=== PATIENT | male | born 1990 | race Caucasian/White ===

== ENCOUNTER 2022-07-21 16:36 | Inpatient (IN) | payer MEDICAID, SELFPAY ==
[2022-07-21 17:13] VITALS: BP 130/70; PULSE 92; RESP 12; TEMP 36.8; O2SAT 97
--- NOTE | 2022-07-21 17:36 | ED_ITS ---
HPI - General Adult General: Chief complaint: Psychiatric Symptoms Stated complaint: MHE Time Seen by Provider: 07/21/22 17:27 History of Present Illness: HPI: [32]yo patient w/ hx of depression BIBA for depression with suicidal ideation. On arrival, the patient is AAOx3 and cooperative with my evaluation. No focal complaints of chest pain, shortness of breath, palpitations, N/V, focal GI/ complaints. Currently denies HI. No complaints of hallucinations. Onset: chronic Duration: ongoing Location: home Severity: severe Associated symptoms: Deny chest pain, dyspnea, nausea, palpitations or vomiting Review of Systems Const: Denies: fever(s) or chills Eyes: Denies: change in vision ENMT: Denies: mouth pain Card: Denies: chest pain or palpitations Resp: Denies: dyspnea or non-productive cough GI: Denies: abdominal pain, nausea, vomiting or diarrhea : Denies: dysuria Musc: Denies: extremity pain Skin/Breast: Reports: new lesions (+L arm laceration) Neuro: Denies: weakness in extremities Psych: Reports: depression and suicidal ideation Matthew/Lymph: Denies: easy bruising PFSH ED PFSH: Medical History Depression Social History Smoking and tobacco status: former smoker Alcohol intake: former Substance/Drug Use: former Physical Exam Const: COMMON NORMALS: alert HENMT: COMMON NORMALS: atraumatic HEAD & SCALP: atraumatic MOUTH: moist mucous membranes not abnormal Eye: COMMON NORMALS: EOMs intact bilaterally and conjunctivae normal CONJUNCTIVA: Yes conjunctivae normal Neck/C-Spine: COMMON NORMALS: full ROM and supple Resp: COMMON NORMALS: normal respiratory effort and clear to auscultation bilaterally AUSCULTATION: clear to auscultation bilaterally Cardio: COMMON NORMALS: regular rate RATE: regular rate GI: COMMON NORMALS: Soft to palpation and non-tender PALPATION: Yes Soft to palpation Extremity: COMMON NORMALS: full ROM Neuro: SENSORIUM/ORIENTATION: Yes alert MOTOR EXAM: No Abnormal motor strength present and Other motor observations present (no focal motor deficits) Psych: COMMON NORMALS: speech normal SPEECH: Yes normal speech MOOD & AFFECT: Yes euthymic mood Skin: NARRATIVE SKIN EXAM: +multiple healing superficial lacerations over the L volar forearm Course Vital Signs: Vital signs: Vital Signs Temperature 98.3 F 07/21/22 17:13 Pulse Rate 92 07/21/22 17:13 Respiratory Rate 12 07/21/22 17:13 Blood Pressure 130/70 07/21/22 17:13 Pulse Oximetry 97 07/21/22 17:13 Oxygen Delivery Me thod 07/21/22 17:13 MDM - General Adult Medical Decision Making [32]yo patient w/ hx of depression presenting for SI with plan. HDS, exam within normal limit Thoughts are linear and organized, and the patient has no AH/VH, or HI. Clinically the patient displays no overt toxidrome; they are well appearing, with low suspicion for toxic ingestion given history and exam. Symptoms unlikely 2/2 anemia, hypothyroidism, infection, or ICH. Workup: CBC, CMP, Lipase, salicylate/tylenol, UDS Lab findings: wnl [6:00pm] On reassessment, labs and workup wnl. Patient is hemodynamically stable with no acute medical complaints. Case discussed with psychiatric provider Dr. Pinto at [facility] psych inpatient with recommendation for admission Disposition: Psych Lab Data : 07/21/22 18:09 07/21/22 18:09 Laboratory Results WBC 5.6 10^3/uL (4.0-10.0) 07/21/22 18:09 RBC 5.33 10^6/uL (4.1-5.3) H 07/21/22 18:09 Hgb 16.1 g/dL (11.7-16.6) 07/21/22 18:09 Hct 46.6 % (42.0-52.0) 07/21/22 18:09 MCV 87.4 fl (80-94) 07/21/22 18:09 MCH 30.2 pg (28.0-34.0) 07/21/22 18:09 MCHC 34.5 g/dL (30.0-36.0) 07/21/22 18:09 RDW 12.3 % (12.1-15.1) 07/21/22 18:09 Plt Count 163 10^3/cmm (130-400) 07/21/22 18:09 MPV 8.8 fL (7.4-10.4) 07/21/22 18:09 Neut % (Auto) 47.0 % 07/21/22 18:09 Lymph % (Auto) 39.4 % 07/21/22 18:09 [place] % (Auto) 10.4 % 07/21/22 18:09 Eos % (Auto) 2.3 % 07/21/22 18:09 Baso % (Auto) 0.5 % 07/21/22 18:09 Neut # (Auto) 2.63 10^3/uL (1.8-7.7) 07/21/22 18:09 Lymph # (Auto) 2.2 10^3/uL (0.8-4.8) 07/21/22 18:09 [place] # (Auto) 0.6 10^3/uL (0.2-0.9) 07/21/22 18:09 Eos # (Auto) 0.1 10^3/uL (0.0-0.8) 07/21/22 18:09 Baso # (Auto) 0.0 10^3/uL (0.0-0.1) 07/21/22 18:09 Nucleated RBC % (auto) 0 % 07/21/22 18:09 Nucleated RBCs # 0.0 /100WBC 07/21/22 18:09 Sodium 138 mmol/L (136-145) 07/21/22 18:09 Potassium 4.5 mmol/L (3.5-5.1) 07/21/22 18:09 Chloride 98 mmol/L (98-107) 07/21/22 18:09 Carbon Dioxide 32 mmol/L (22-29) H 07/21/22 18:09 Anion Gap 12.5 (5-19) 07/21/22 18:09 BUN 15 mg/dL (6-20) 07/21/22 18:09 Creatinine 1.1 mg/dL (0.7-1.2) 07/21/22 18:09 GFR Calculation 78.1 mL/min (90-130) L 07/21/22 18:09 Glucose 84 mg/dL (65-115) 07/21/22 18:09 Calculated Osmolality 286 mOsm/kg (285-295) 07/21/22 18:09 Calcium 9.3 mg/dL (8.5-10.5) 07/21/22 18:09 Total Bilirubin 0.2 mg/dL (0.15-1.2) 07/21/22 18:09 AST 25 U/L (0-40) 07/21/22 18:09 ALT 39 U/L (0-41) 07/21/22 18:09 Alkaline Phosphatase 94 U/L (40-130) 07/21/22 18:09 Total Protein 6.8 g/dL (6.6-8.7) 07/21/22 18:09 Albumin 4.8 g/dL (3.5-5.2) 07/21/22 18:09 Globulin 2.0 g/dL (1.3-4.6) 07/21/22 18:09 TSH 0.90 uIU/mL (0.27-4.20) 07/21/22 18:09 Salicylates < 0.3 mg/dL (3-10) L 07/21/22 18:09 Urine Opiates Screen Negative ng/mL (Negative) 07/21/22 18:20 Acetaminophen < 5.0 ug/mL (10-30) L 07/21/22 18:09 Ur Barbiturates Screen Negative ng/mL (Negative) 07/21/22 18:20 Ur Phencyclidine Scrn Negative ng/mL (Negative) 07/21/22 18:20 Ur Amphetamines Screen Negative ng/mL (Negative) 07/21/22 18:20 U Benzodiazepines Scrn Positive ng/mL (Negative) H 07/21/22 18:20 Urine Cocaine Screen Negative ng/mL (Negative) 07/21/22 18:20 U Marijuana (THC) Screen Negative ng/mL (Negative) 07/21/22 18:20 Ethyl Alcohol < 10 mg/dL (0-10) 07/21/22 18:09 Discharge Plan Discharge Patient Disposition: Admitted As Inpatient Clinical Impression: Depression with suicidal ideation, Auditory hallucination Condition: Stable Coding Level of Care Code 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
[2022-07-21 18:20] LABS: Basophils % 0.5 %; Eosinophils # 0.1 10^3/uL (0.0-0.8); Eosinophils % 2.3 %; Hematocrit 46.6 % (42.0-52.0); Hemoglobin 16.1 g/dL (11.7-16.6); Lymphocytes # 2.2 10^3/uL (0.8-4.8); Lymphocytes % 39.4 %; Mean Corpuscular HGB Conc 34.5 g/dL (30.0-36.0); Mean Corpuscular Hemoglobin 30.2 pg (28.0-34.0); Mean Corpuscular Volume 87.4 fl (80-94); Mean Platelet Volume 8.8 fL (7.4-10.4); Monocytes # 0.6 10^3/uL (0.2-0.9); Monocytes % 10.4 %; Neutrophils # 2.63 10^3/uL (1.8-7.7); Nucleated Red Blood Cells % 0 %; Platelet Count 163 10^3/cmm (130-400); Red Blood Count 5.33 10^6/uL (4.1-5.3); Red Cell Distribution Width 12.3 % (12.1-15.1); White Blood Count 5.6 10^3/uL (4.0-10.0)
[2022-07-21 18:56] LABS: Amphetamines Screen Urine Negative (Negative); Barbiturates Screen Urine Negative (Negative); Benzodiazepines Screen Urine Positive (Negative); Cocaine Screen Urine Negative (Negative); Opiate Screen Urine Negative (Negative); PCP Screen Urine Negative (Negative); THC Screen Urine Negative (Negative)
[2022-07-21 18:56] LABS: Alanine Aminotransferase 39 U/L (0-41); Albumin Level 4.8 g/dL (3.5-5.2); Alkaline Phosphatase 94 U/L (40-130); Anion Gap 12.5 (5-19); Aspartate Amino Transferase 25 U/L (0-40); Blood Urea Nitrogen 15 mg/dL (6-20); Calcium 9.3 mg/dL (8.5-10.5); Carbon Dioxide 32 mmol/L (22-29); Chloride 98 mmol/L (98-107); Glomerular Filtration Rate 78.1 mL/min (90-130); Glucose 84 mg/dL (65-115); Osmolality Calculated 286 mOsm/kg (285-295); Potassium 4.5 mmol/L (3.5-5.1); Sodium 138 mmol/L (136-145); Total Bilirubin 0.2 mg/dL (0.15-1.2); Total Protein 6.8 g/dL (6.6-8.7)
[2022-07-21 18:57] LABS: Acetaminophen < 5.0 ug/mL (10-30); Alcohol Level < 10 mg/dL (0-10); Salicylate < 0.3 mg/dL (3-10)
[2022-07-21] MEDS: LORazepam 2 mg Tablet PO (19:23)
[2022-07-21 19:28] LABS: Add Urine Microscopic? YES; Bilirubin Urine Neg (Negative); Blood Urine Neg (Negative); Glucose Urine UA Norm (Normal); Ketones Urine Negative (Negative); Leukocyte Esterase Urine Trace (Negative); Nitrate Urine Negative (Negative); Protein Urine Neg (Negative); Urine Appearance Clear (CLEAR); Urine Color Yellow (Yellow); Urobilinogen Urine Norm (Negative); pH Urine 7 (5-7)
[2022-07-21 19:29] LABS: Add Urine Culture? No; RBC Urine 0-4 /hpf (0-2); Squamous Epithelial Cell Urine 0-4 /hpf (0-5); WBC Urine 0-4 /hpf (0-5)
[2022-07-21] MEDS: gabapentin 300 mg Capsule PO (22:28)
[2022-07-21 22:29] VITALS: BP 148/88
[2022-07-21] MEDS: fluoxetine 20 mg Capsule 10 MG PO (22:29)
[2022-07-21] MEDS: cloNIDine 0.1 mg Tablet PO (22:29)
[2022-07-21] MEDS: OXcarbazepine 300 mg Tablet 600 MG PO (22:29)
--- NOTE | 2022-07-21 23:17 | PC.NURSE ---
Took over care of pt. Pt requesting anxiety meds at this time. NAD. Cooperative. Pt moved to room 8.
[2022-07-22 00:44] VITALS: BP 129/84; PULSE 86; RESP 18; TEMP 36.8; O2SAT 97
[2022-07-22] MEDS: trazodone 50 mg Tablet PO ×3 (01:08→22:18)
--- NOTE | 2022-07-22 01:47 | PC.ADMIT ---
117 [facility] Admission Note: The patient,Darin Han,32 y/o, was given written information regarding hospital policies, unit procedures and contact persons. Patient's smoking status: former smoker. Vital Signs - 8 hr 07/21/22 22:29 07/22/22 00:39 Blood Pressure 148/88 Oxygen Delivery Method Room Air PT PRESENTS ANXIOUS BUT COOPERATIVE. HYPERVERBAL. POOR CONCENTRATION. REPORTS I HAVE BEEN AT [facility] TRYING TO KICK THE BENZOS. I QUIT ALL OTHER DRUGS 28 MONTHS AGO AND ONLY HAVE THE BENZOS AND ADDERALL NOW. SINCE STOPPING, I ALWAYS FEEL LIKE SOMEONE IS RIGHT BEHIND ME AND HAVE BECOME MORE DEPRESSED AND HOPELES AND FEEL LIKE I JUST WANT IT TO BE DONE DENIES A PLAN. REPORTS HX OF SEIZURES WHEN ATTEMPTING TO WITHDRAW FROM BENZOS ON OWN PREVIOUSLY. PT REPORTS A LOT OF TRAUMA IN HX WITH THE WORST TRAUMAS BEING SEEING TOO MANY PEOPLE IN PERSON. AGE 14 HE HELD GRANDPAS HAND WHILE HE , MULTIPLE FRIENDS OD'D AND SUICIDE AND WITNESSED BEST FRIEND IN 2018 FROM CYSTIC FIBROSIS AND THAT WAS THE WORST ONE. HX OF SUICIDE ATTEMPT IN 2019. 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 GOOD SUPPORT SYSTEM. PT IS CLEAN AND WELL KEMPT. EASILY DISTRACTED.
[2022-07-22 06:00] VITALS: BP 127/75; PULSE 63; RESP 15; TEMP 37; O2SAT 95
[2022-07-22] MEDS: OXcarbazepine 300 mg Tablet 600 MG PO ×2 (10:09→18:32)
[2022-07-22] MEDS: chlordiazePOXIDE 25 mg Capsule PO (10:09)
[2022-07-22] MEDS: lisinopril 20 mg Tablet PO (10:09)
[2022-07-22] MEDS: fluoxetine 20 mg Capsule 40 MG PO (10:10)
[2022-07-22] MEDS: gabapentin 300 mg Capsule PO ×3 (10:10→21:22)
[2022-07-22] MEDS: OLANZapine 5 mg ODT PO (12:18)
[2022-07-22 14:00] VITALS: BP 128/69; PULSE 80; RESP 15; TEMP 36.6; O2SAT 95
[2022-07-22] MEDS: CLONazepam 1 mg Tablet PO ×2 (16:40→21:22)
--- NOTE | 2022-07-22 17:45 | P.NPUHP_ITS ---
Providers/Chief Complaint Admitting Physician: Philipp Pinto MD Chief Complaint: depressed mood and suicidal ideation HPI NPU History of Present Illness Darin Han is a 32 year old male admitted to [facility] inpatient rehabilitation center for the past 8 days. He had reported with suicidal alcon ation over the past few days and states that he had been informed to come to the emergency room for further clearance prior to reentering into the [facility] inpatient program. He states that he has been feeling increasingly anxious and agitated with the reduction in his benzodiazepines from 4 mg a day of Klonopin down to approximately 40 mg a day of Librium. He states that the doctor had abruptly discontinued this medication and states that he has been worried about having a seizure. He endorses a past history of panic attacks along with generalized anxiety disorder and states that his chronic worry and panic attacks have been much worse. He endorses having depressed mood for the past several days and states that he has had difficulties with concentration. He has reported at times having had benzodiazepine withdrawal seizures and states that he has been feeling much worse. He endorses a past history of ADHD and states that he had his Adderall discontinued as well. He also endorses a past history of manic symptoms including irritable mood decreased need for sleep racing thou ghts periods of excessive spending with mixed mood symptoms including depressed mood as well. He reports a past history of methamphetamine use but states that he has been clean off his off of any stimulant abuse for a few years. He had also reported sobriety with opiates despite an extended history of opiate abuse reported. He reports that he has been using Suboxone 8 mg a day in the past but had that reduced approximately 2 months ago with some change reported in his mood and energy. The patient had reported that he had desired to get off of his benzodiazepines but reports that the accelerated efforts at [facility] had led him to feel significantly dyspneic dysphoric. Past Psychiatric History: Patient has reported 4 previous hospitalizations. He reports history of inpatient rehabilitation at the age of 19. Would also reported history of a suicide attempt leading to his first psychiatric hospitalization as a teenager. He had reported previous diagnosis of panic disorder generalized anxiety disorder and bipolar depression. He reported having outpatient treatment currently under Dorothy Humphries through his outpatient primary clinic. He had reported previously seeing a psychiatrist at [facility] and stated that it had been helpful. 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 He reports having no no use of methamphetamines for several years. He had reported past history of excessive use of benzodiazepines orally for treating anxiety. He denies any current alcohol use. Social History: He was born in [place] and raised by his biological parents until they at 14. After this time, he lived with his mother. He reported having been diagnosed with oppositional defiant disorder and ADHD as a child. He reports having significant problems with juvenile Justice for fighting and stealing during his childhood. He reports dropping out of school in the 10th grade and earned his GED with no significant legal problems afterwards. 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 He reports that he had attended a college for [employer] in [place]. He reports that he has never been and has no he had reported having significant mood swings as a child. Meds NPU Home Medications Medication Instructions Recorded Confirmed Last Taken Type buprenorphine HCl 2 mg sublingual 2 mg sublingual DAILY 07/22/22 07/22/22 07/21/22 06:21 History tablet chlordiazepoxide 25 mg tablet 25 mg PO TID 07/22/22 07/22/22 07/21/22 11:54 History clonidine HCl 0.1 mg tablet 0.1 mg PO TID PRN BLOOD 07/22/22 07/22/22 07/21/22 11:55 History PRESSURE/ANXIETY fluoxetine 10 mg capsule 10 mg PO BEDTIME 07/22/22 07/22/22 07/20/22 19:22 History fluoxetine 40 mg capsule 40 mg PO DAILY 07/22/22 07/22/22 07/21/22 06:22 History gabapentin 300 mg tablet 300 mg PO TID WITHDRAWAL/SEIZURE 07/22/22 07/22/22 07/21/22 11:54 History hydroxyzine pamoate 50 mg capsule 50 mg PO TID PRN ALLERGIES/ANXIETY 07/22/22 07/22/22 07/21/22 11:55 History lisinopril 20 mg tablet 20 mg PO DAILY 07/22/22 07/22/22 07/21/22 06:23 History oxcarbazepine 300 mg tablet 600 mg PO BID 07/22/22 07/22/22 07/21/22 06:25 History (Trileptal) Allergies Allergy/AdvReac Type Severity Reaction Status Date / Time fluconazole [From Diflucan] Allergy ALGY-Rash Verified 07/21/22 17:13 oxybutynin Allergy ALGY-Hives Verified 07/21/22 17:13 Penicillins Allergy ALGY-Hives Verified 07/21/22 17:13 PFSH NPU PFSH: Medical History Depression Social History Smoking and tobacco status: former smoker Alcohol intake: former Substance/Drug Use: former Mental Status Exam MSE Comments: Is a pleasant cooperative young male who appeared very anxious on interview and fidgety. There was no evidence of any tics or clear tremors appreciated. His mood was described as depressed. His affect was restricted in range. There was no clear evidence of delusional thinking. He not appear to be responding internal stimuli. His attention appeared variable his concentration appeared poor. He endorses some passive suicidal thoughts with no active plan at this time. There is no homicidal ideation endorsed. His insight appeared fair his judgment appeared poor his impulse control appeared guarded at this time. Vitals/I&O/Wt Last Vital Signs Temp 98 F 07/22/22 14:00 Pulse 80 07/22/22 14:00 Resp 15 07/22/22 14:00 BP 128/69 07/22/22 14:00 Pulse Ox 95 07/22/22 14:00 O2 Del Method 07/22/22 06:00 Weight last 48 hrs Weight 115.666 kg Data NPU : 07/21/22 18:09 07/21/22 18:09 A&P Assessment and plan (1) Depression with suicidal ideation: Status: Acute (2) Polysubstance abuse: Status: Acute (3) Generalized anxiety disorder: Status: Acute (4) ADHD: Status: Acute (5) Bipolar disorder, unspecified: Status: Acute Plan This is a 32-year-old white male with a history of polysubstance abuse admitted to the [facility] currently endorsing increased mood symptoms with depressed mood and suicidally ideation that appears to have been triggered by rapid decrease in benzodiazepines in an attempt to remove patient from Klonopin. 1. Engage patient in individual milieu and group therapy #2. Therapeutic observation 15-minute checks. #3 Restart Prozac, lisinopril and trileptal as prescribed #4 Restart suboxone at 8mg/day #5 Restart Klonopin at 1mg tid, discontinued Librium, given the extensive duration of use of klonopin, it may be better to reduce this slowly by .5mg every 2 weeks on outpatient basis. #6 recommend restart of adhd medication, adderall if possible. Involuntary Hold Information 96 Hour Hold: 96 Hour Involuntary Admission: No Attestations NPU Medical Necessity Statement*: Inpatient hospitalization is medically necessary and the clinically appropriate intervention at this time. We will monitor medications and make changes as indicated. Patient will be in the hospital for over two midnights. Likely length of stay is three to five days. ? 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
[2022-07-22] MEDS: buprenorphine-naloxone 4-1 mg Film 1 EACH SUBLINGUAL (18:32)
[2022-07-22 19:58] VITALS: BP 109/67; PULSE 66; RESP 18; O2SAT 94
[2022-07-23] MEDS: ibuprofen 600 mg Tablet PO (04:17)
[2022-07-23 06:00] VITALS: BP 111/67; PULSE 87; RESP 16; TEMP 36.4; O2SAT 95
[2022-07-23] MEDS: OXcarbazepine 300 mg Tablet 600 MG PO ×2 (09:23→17:48)
[2022-07-23] MEDS: fluoxetine 10 mg Capsule PO (09:23)
[2022-07-23] MEDS: fluoxetine 20 mg Capsule 40 MG PO (09:23)
[2022-07-23] MEDS: buprenorphine-naloxone 4-1 mg Film 1 EACH SUBLINGUAL ×2 (09:23→17:48)
[2022-07-23] MEDS: lisinopril 20 mg Tablet PO (09:24)
[2022-07-23] MEDS: CLONazepam 1 mg Tablet PO ×3 (09:24→21:26)
[2022-07-23] MEDS: gabapentin 300 mg Capsule PO ×3 (09:24→21:26)
[2022-07-23] MEDS: hyDROXYzine 25 mg Capsule 50 MG PO ×2 (11:16→21:45)
[2022-07-23] MEDS: OLANZapine 5 mg ODT PO ×2 (11:17→18:43)
[2022-07-23] MEDS: nicotine 21 mg Patch 1 PATCH TRANSDERMA (11:18)
--- NOTE | 2022-07-23 11:26 | P.NPUPN_ITS ---
Subjective NPU Subjective: Patient presents today reporting that he is doing better since the Klonopin was restarted. We spoke however about the unlikelihood that [facility] would want to go back to this higher dose based on their intervention. He had his desire to return to [facility] we will need to collaborate with him about what would be seen as a reasonable pattern for the Klonopin discontinuation. We discussed dropping the dose to 2.5 mg a day instead of 3 and then having a biweekly 0.5 mg drop, but that would mean a discontinuation in 2 months. This may be too slow for their tastes. We agreed we would make a decision after we hear back from them. Mental Status Exam MSE Comments: This is an overweight white male in day [facility] scrubs with adequate grooming and eye contact. No abnormal movements except mild psychomotor retardation. Cooperative with exam in mild distress. Speech was slightly decreased rate normal volume. Mood described as anxious, affect appropriate thought process organized. Thought content: Patient denied suicidal or homicidal ideation, there were no delusions reported or noted, he denied any auditory hallucination. Attention concentration were intact and memory appeared done formally tested. He was alert oriented x3. Insight was improving, judgment limited, impulse control limited. Vitals/I&O/Wt Last Vital Signs Temp 97.5 F L 07/23/22 06:00 Pulse 87 07/23/22 06:00 Resp 16 07/23/22 06:00 BP 111/67 07/23/22 06:00 Pulse Ox 95 07/23/22 06:00 O2 Del Method 07/22/22 06:00 Weight last 48 hrs Weight 115.666 kg Data NPU : 07/21/22 18:09 07/21/22 18:09 A&P Assessment and plan (1) Depression with suicidal ideation: Status: Acute (2) Polysubstance abuse: Status: Acute (3) Generalized anxiety disorder: Status: Acute (4) ADHD: Status: Acute (5) Bipolar disorder, unspecified: Status: Acute Plan This is a 32-year-old white male with a history of polysubstance abuse admitted to the [facility] inpatient rehabilitation center currently endorsing increased mood symptoms with depressed mood and suicidally ideation that appears to have been triggered by rapid decrease in benzodiazepines in an attempt to remove patient from Klonopin. 1. Engage patient in individual milieu and group therapy #2. Therapeutic observation 15-minute checks. #3 Restart Prozac, lisinopril and trileptal as prescribed #4 Restart suboxone at 8mg/day #5 Restarted Klonopin at 1mg tid, discontinued Librium, given the extensive duration of use of klonopin, it may be better to reduce this slowly by .5mg every 2 weeks on outpatient basis. #6 We will decrease Klonopin to 2.5 mg daily and work with [facility] to determine a taper they would be okay with. Involuntary Hold Information 96 Hour Hold: 96 Hour Involuntary Admission: No Attestations NPU Medical Necessity Statement*: Inpatient hospitalization is medically necessary and the clinically appropriate intervention at this time. We will monitor medications and make changes as indicated. Likely length of stay is 2-4 days. ? 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
--- NOTE | 2022-07-23 11:39 | PC.NURSE ---
NEW ORDERS/AM ASSESSMENT PT WAS VERY ANXIOUS ON AM ASSESSMENT, SCORING 8/10 FOR ANXIETY. PT WAS GIVEN PRN ZYDIS AND VISTARIL ORDERED. MAR WAS REVIEWED AND KLONOPIN WAS RESTARTED 3 TIMES A DAY. PT WAS EDUCATED ON HIS PLAN OF CARE AND VERBALIZED UNDERSTANDING. ALL QUESTIONS ANSWERED AND SUPPORT WAS VOICED.
[2022-07-23 14:00] VITALS: BP 135/72; PULSE 79; RESP 15; TEMP 36.7; O2SAT 95
[2022-07-23] MEDS: trazodone 50 mg Tablet PO (21:26)
[2022-07-23] MEDS: cloNIDine 0.1 mg Tablet PO (21:26)
[2022-07-23 21:44] VITALS: BP 153/74; PULSE 108; RESP 18; TEMP 36.9; O2SAT 97
[2022-07-24 06:00] VITALS: BP 110/69; PULSE 72; RESP 17; TEMP 36.7; O2SAT 94
[2022-07-24] MEDS: hyDROXYzine 25 mg Capsule 50 MG PO ×3 (06:37→21:58)
[2022-07-24] MEDS: OLANZapine 5 mg ODT PO (06:38)
[2022-07-24] MEDS: buprenorphine-naloxone 4-1 mg Film 1 EACH SUBLINGUAL ×2 (08:26→18:17)
[2022-07-24] MEDS: OXcarbazepine 300 mg Tablet 600 MG PO ×2 (08:26→18:17)
[2022-07-24] MEDS: fluoxetine 20 mg Capsule 40 MG PO (08:26)
[2022-07-24] MEDS: gabapentin 300 mg Capsule PO ×3 (08:27→21:58)
[2022-07-24] MEDS: lisinopril 20 mg Tablet PO (08:27)
[2022-07-24] MEDS: fluoxetine 10 mg Capsule PO (08:27)
[2022-07-24] MEDS: CLONazepam 1 mg Tablet PO ×2 (08:27→21:58)
[2022-07-24] MEDS: nicotine 21 mg Patch 1 PATCH TRANSDERMA (08:27)
--- NOTE | 2022-07-24 09:21 | PC.NURSE ---
shift assessment denies SI/HI/AVH ...did c/o some difficulty pissing ever since being started on Suboxone back in January 2020....says some hesitancy while attempting to urinate, but states this is nothing new
--- NOTE | 2022-07-24 12:30 | PC.NURSE ---
PRN VISTARIL 50 MG GIVEN PO PER PT C/O STATED ANXIETY
[2022-07-24] MEDS: CLONazepam 0.5 mg Tablet PO (13:35)
[2022-07-24 14:00] VITALS: BP 121/70; PULSE 84; RESP 17; O2SAT 94
--- NOTE | 2022-07-24 19:21 | W.PM.NPUPNS ---
Subjective NPU Subjective: Patient presents today reporting that he is feeling better. We discussed our plan to reach out to the physician today however he was not in today but will be in Wednesday and Wednesday. We agreed with discussed with him our proposed taper plan of changing the dose by half a milligram every 10 to 14 days and continuing the Suboxone at the 8 mg and determine if that is reasonable as the start place for his return. Mental Status Exam MSE Comments: This is an overweight white male in [facility] scrubs with adequate grooming and eye contact. No abnormal movements except mild psychomotor retardation. Cooperative with exam in mild distress. Speech was slightly decreased rate normal volume. Mood described as anxious but better, affect appropriate thought process organized. Thought content: Patient denied suicidal or homicidal ideation, there were no delusions reported or noted, he denied any auditory hallucination. Attention concentration were intact and memory appeared done formally tested. He was alert oriented x3. Insight was improving, judgment limited, impulse control limited. Vitals/I&O/Wt Last Vital Signs Temp 97.8 F 07/24/22 22:00 Pulse 96 07/24/22 22:00 Resp 18 07/24/22 22:00 BP 123/82 07/24/22 22:00 Pulse Ox 95 07/24/22 22:00 O2 Del Method 07/24/22 22:00 Data NPU : 07/21/22 18:09 07/21/22 18:09 A&P Assessment and plan (1) Depression with suicidal ideation: Status: Acute (2) Polysubstance abuse: Status: Acute (3) Generalized anxiety disorder: Status: Acute (4) ADHD: Status: Acute (5) Bipolar disorder, unspecified: Status: Acute Plan This is a 32-year-old white male with a history of polysubstance abuse admitted to the [facility] currently endorsing increased mood symptoms with depressed mood and suicidally ideation that appears to have been triggered by rapid decrease in benzodiazepines in an attempt to remove patient from Klonopin. 1. Engage patient in individual milieu and group therapy #2. Therapeutic observation 15-minute checks. #3 Restart Prozac, lisinopril and trileptal as prescribed #4 Restart suboxone at 8mg/day #5 Restarted Klonopin at 1mg tid, discontinued Librium, given the extensive duration of use of klonopin, it may be better to reduce this slowly by .5mg every 2 weeks on outpatient basis. #6 We will decrease Klonopin to 2.5 mg daily and work with [facility] to determine a taper they would be okay with and consider discharge starting tomorrow. Involuntary Hold Information 96 Hour Hold: 96 Hour Involuntary Admission: No Attestations NPU Medical Necessity Statement*: Inpatient hospitalization is medically necessary and the clinically appropriate intervention at this time. We will monitor medications and make changes as indicated. Likely length of stay is 1-3 days. ? 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
[2022-07-24 22:00] VITALS: BP 123/82; PULSE 96; RESP 18; TEMP 36.6; O2SAT 95
[2022-07-24] MEDS: trazodone 50 mg Tablet PO (22:06)
--- NOTE | 2022-07-24 22:43 | PC.NURSE ---
PRN MEDS PT GIVEN 50MG VISTARIL FOR STATED ANXIETY, & 50 MG TRAZADONE FOR INSOMNIA, WILL CONTINUE TO MONITOR.
[2022-07-25 06:00] VITALS: BP 130/73; PULSE 79; RESP 14; TEMP 36.6; O2SAT 96
[2022-07-25] MEDS: CLONazepam 1 mg Tablet PO (06:32)
[2022-07-25] MEDS: buprenorphine-naloxone 4-1 mg Film 1 EACH SUBLINGUAL (08:48)
[2022-07-25] MEDS: fluoxetine 20 mg Capsule 40 MG PO (08:48)
[2022-07-25] MEDS: fluoxetine 10 mg Capsule PO (08:48)
[2022-07-25] MEDS: OXcarbazepine 300 mg Tablet 600 MG PO (08:48)
[2022-07-25] MEDS: gabapentin 300 mg Capsule PO (08:49)
[2022-07-25] MEDS: lisinopril 20 mg Tablet PO (08:49)
[2022-07-25] MEDS: OLANZapine 5 mg ODT PO ×2 (08:54→12:41)
[2022-07-25] MEDS: hyDROXYzine 25 mg Capsule 50 MG PO ×2 (08:54→12:40)
[2022-07-25] MEDS: nicotine 21 mg Patch 1 PATCH TRANSDERMA (09:25)
--- NOTE | 2022-07-25 11:07 | W.PM.NPUDCS ---
Diagnoses at Discharge Discharge Diagnosis (1) Depression with suicidal ideation: Status: Resolved (2) Polysubstance abuse: Status: Acute (3) Generalized anxiety disorder: Status: Acute (4) ADHD: Status: Acute (5) Bipolar disorder, unspecified: Status: Acute Reason for Visit Reason for Visit: depressed mood and suicidal ideation Brief History: History of Present Illness Darin Han is a 32 year old male admitted to [facility] inpatient rehabilitation center for the past 8 days. He had reported with suicidal ideation over the past few days and states that he had been informed to come to the emergency room for further clearance prior to reentering into the [facility] inpatient program. He states that he has been feeling increasingly anxious and agitated with the reduction in his benzodiazepines from 4 mg a day of Klonopin down to approximately 40 mg a day of Librium. He states that the doctor had abruptly discontinued this medication and states that he has been worried about having a seizure. He endorses a past history of panic attacks along with generalized anxiety disorder and states that his chronic worry and panic attacks have been much worse. He endorses having depressed mood for the past several days and states that he has had difficulties with concentration. He has reported at times having had benzodiazepine withdrawal seizures and states that he has been feeling much worse. He endorses a past history of ADHD and states that he had his Adderall discontinued as well. He also endorses a past history of manic symptoms including irritable mood decreased need for sleep racing thoughts periods of excessive spending with mixed mood symptoms including depressed mood as well. He reports a past history of methamphetamine use but states that he has been clean off his off of any stimulant abuse for a few years. He had also reported sobriety with opiates despite an extended history of opiate abuse reported. He reports that he has been using Suboxone 8 mg a day in the past but had that reduced approximately 2 months ago with some change reported in his mood and energy. The patient had reported that he had desired to get off of his benzodiazepines but reports that the accelerated efforts at [facility] had led him to feel significantly dyspneic dysphoric. Past Psychiatric History: Patient has reported 4 previous hospitalizations. He reports history of inpatient rehabilitation at the age of 19. Would also reported history of a suicide attempt leading to his first psychiatric hospitalization as a teenager. He had reported previous diagnosis of panic disorder generalized anxiety disorder and bipolar depression. He reported having outpatient treatment currently under Dorothy Humphries through his outpatient primary clinic. He had reported previously seeing a psychiatrist at [facility] and stated that it had been helpful. 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 He reports having no no use of methamphetamines for several years. He had reported past history of excessive use of benzodiazepines orally for treating anxiety. He denies any current alcohol use. Social History: He was born in [place] and raised by his biological parents until they at 14. After this time, he lived with his mother. He reported having been diagnosed with oppositional defiant disorder and ADHD as a child. He reports having significant problems with juvenile Justice for fighting and stealing during his childhood. He reports dropping out of school in the 10th grade and earned his GED with no significant legal problems afterwards. 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 He reports that he had attended a college for [employer] in [place]. He reports that he has never been and has no he had reported having significant mood swings as a child Hospital Course Hospital Course Patient slowly acclimated to the individual, group and milieu therapies provided.? 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 We developed a taper plan for decreasing the Klonopin every 10 days. We discussed that with currently and they were supportive of this plan. He had marked improvement during her stay and was able to contract for safety outside the hospital prior to discharge. Discharged to [facility] for continued drug and alcohol treatment. During the hospitalization, patient had routine laboratory studies which were within normal limits except for few outliers.? Additionally there was a general medical evaluation which was also within normal limits and revealed no new acute processes. Discharge Summary: At the time of discharge, he denied psychosis or lethality.? Mood and anxiety were well managed.? Patient endorsed a plan to avoid all drugs of abuse and follow-up with the aftercare recommendations of the treatment team.? Patient was evaluated and deemed to be absent credible lethality, and had achieved the maximum benefit from an inpatient hospitalization, so was discharged. Involuntary Hold Information 96 Hour Hold: 96 Hour Involuntary Admission: No Mental Status Exam MSE Comments: This is an overweight white male in [facility] scrubs with adequate grooming and eye contact. No abnormal movements except mild psychomotor retardation. Cooperative with exam in mild distress. Speech was more normal rate and volume. Mood described as anxious but better, affect appropriate thought process organized. Thought content: Patient denied suicidal or homicidal ideation, there were no delusions reported or noted, he denied any auditory hallucination. Attention concentration were intact and memory appeared done formally tested. He was alert oriented x3. Insight was improving, judgment limited, impulse control limited. Discharge Data Studies Completed and Pending: Laboratory Results WBC 5.6 10^3/uL (4.0- 10.0) 07/21/22 18:09 RBC 5.33 10^6/uL (4.1 -5.3) H 07/21/22 18:09 Hgb 16.1 g/dL (11.7-1 6.6) 07/21/22 18:09 Hct 46.6 % (42.0-52.0 ) 07/21/22 18:09 MCV 87.4 fl (80-94) 07/21/22 18:09 MCH 30.2 pg (28.0-34. 0) 07/21/22 18:09 MCHC 34.5 g/dL (30.0-3 6.0) 07/21/22 18:09 RDW 12.3 % (12.1-15.1 ) 07/21/22 18:09 Plt Count 163 10^3/cmm (130 -400) 07/21/22 18:09 MPV 8.8 fL (7.4-10.4) 07/21/22 18:09 Neut % (Auto) 47.0 % 07/21/22 18:09 Lymph % (Auto) 39.4 % 07/21/22 18:09 [place] % (Auto) 10.4 % 07/21/22 18:09 Eos % (Auto) 2.3 % 07/21/22 18:09 Baso % (Auto) 0.5 % 07/21/22 18:09 Neut # (Auto) 2.63 10^3/uL (1.8 -7.7) 07/21/22 18:09 Lymph # (Auto) 2.2 10^3/uL (0.8- 4.8) 07/21/22 18:09 [place] # (Auto) 0.6 10^3/uL (0.2- 0.9) 07/21/22 18:09 Eos # (Auto) 0.1 10^3/uL (0.0- 0.8) 07/21/22 18:09 Baso # (Auto) 0.0 10^3/uL (0.0- 0.1) 07/21/22 18:09 Nucleated RBC % (a uto) 0 % 07/21/22 18:09 Nucleated RBCs # 0.0 /100WBC 07/21/22 18:09 Sodium 138 mmol/L (136-1 45) 07/21/22 18:09 Potassium 4.5 mmol/L (3.5-5 .1) 07/21/22 18:09 Chloride 98 mmol/L (98-107 ) 07/21/22 18:09 Carbon Dioxide 32 mmol/L (22-29) H 07/21/22 18:09 Anion Gap 12.5 (5-19) 07/21/22 18:09 BUN 15 mg/dL (6-20) 07/21/22 18:09 Creatinine 1.1 mg/dL (0.7-1. 2) 07/21/22 18:09 GFR Calculation 78.1 mL/min (90-1 30) L 07/21/22 18:09 Glucose 84 mg/dL (65-115) 07/21/22 18:09 Calculated Osmolal ity 286 mOsm/kg (285- 295) 07/21/22 18:09 Calcium 9.3 mg/dL (8.5-10 .5) 07/21/22 18:09 Total Bilirubin 0.2 mg/dL (0.15-1 .2) 07/21/22 18:09 AST 25 U/L (0-40) 07/21/22 18:09 ALT 39 U/L (0-41) 07/21/22 18:09 Alkaline Phosphata se 94 U/L (40-130) 07/21/22 18:09 Total Protein 6.8 g/dL (6.6-8.7 ) 07/21/22 18:09 Albumin 4.8 g/dL (3.5-5.2 ) 07/21/22 18:09 Globulin 2.0 g/dL (1.3-4.6 ) 07/21/22 18:09 TSH 0.90 uIU/mL (0.27 -4.20) 07/21/22 18:09 Urine Color Yellow (Yellow) 07/21/22 18:20 Urine Appearance Clear (CLEAR) 07/21/22 18:20 Urine pH 7 (5-7) 07/21/22 18:20 Ur Specific Gravit y 1.000 (1.005-1.0 30) L 07/21/22 18:20 Urine Protein Neg (Negative) 07/21/22 18:20 Urine Glucose (UA) Norm (Normal) 07/21/22 18:20 Urine Ketones Negative (Negati ve) 07/21/22 18:20 Urine Blood Neg (Negative) 07/21/22 18:20 Urine Nitrate Negative (Negati ve) 07/21/22 18:20 Urine Bilirubin Neg (Negative) 07/21/22 18:20 Urine Urobilinogen Norm mg/dL (Negat lisa) 07/21/22 18:20 Ur Leukocyte Evelyn ase Trace (Negative) H 07/21/22 18:20 Urine RBC 0-4 /hpf (0-2) H 07/21/22 18:20 Urine WBC 0-4 /hpf (0-5) H 07/21/22 18:20 Ur Squamous Epith Cells 0-4 /hpf (0-5) H 07/21/22 18:20 Amorphous Sediment Not Reportable 07/21/22 18:20 Urine Bacteria None /hpf (NONE) 07/21/22 18:20 Salicylates < 0.3 mg/dL (3-10 ) L 07/21/22 18:09 Urine Opiates Scre en Negative ng/mL (N egative) 07/21/22 18:20 Acetaminophen < 5.0 ug/mL (10-3 0) L 07/21/22 18:09 Ur Barbiturates Sc reen Negative ng/mL (N egative) 07/21/22 18:20 Ur Phencyclidine S crn Negative ng/mL (N egative) 07/21/22 18:20 Ur Amphetamines Sc reen Negative ng/mL (N egative) 07/21/22 18:20 U Benzodiazepines Scrn Positive ng/mL (N egative) H 07/21/22 18:20 Urine Cocaine Scre en Negative ng/mL (N egative) 07/21/22 18:20 U Marijuana (THC) Screen Negative ng/mL (N egative) 07/21/22 18:20 Ethyl Alcohol < 10 mg/dL (0-10) 07/21/22 18:09 Vitals: Last Vital Signs Temp 97.9 F 07/25/22 06:00 Pulse 79 07/25/22 06:00 Resp 14 07/25/22 06:00 BP 130/73 07/25/22 06:00 Pulse Ox 96 07/25/22 06:00 O2 Del Method 07/25/22 06:00 Discharge Plan Discharge Patient Disposition: Xfer Inpatient Rehab Fac Condition: Stable Prescriptions: New clonazepam 1 mg Tablet 1 mg PO BID 38 Days Qty: 67 0RF Rx Instructions: 07/25-08/12 twice daily. 08/13-08/22 0.5mg qam, 1 mg qhs. 08/23-09/01 0.5mg twice daily. 09/02-09/11 1/2 tab qhs. then stop. clonazepam 0.5 mg Tablet 0.5 mg PO 1400 8 Days Qty: 8 0RF trazodone 50 mg Tablet 50 mg PO BEDTIME PRN (Reason: Sleep) 30 Days Qty: 30 1RF Zyprexa 5 mg tablet 5 mg PO DAILY PRN (Reason: agitation) 30 Days Qty: 30 1RF Continued oxcarbazepine [Trileptal] 300 mg tablet 600 mg PO BID fluoxetine 40 mg capsule 40 mg PO DAILY fluoxetine 10 mg capsule 10 mg PO BEDTIME lisinopril 20 mg tablet 20 mg PO DAILY gabapentin 300 mg Tablet 300 mg PO TID clonidine HCl 0.1 mg Tablet 0.1 mg PO TID PRN (Reason: BLOOD PRESSURE/ANXIETY) hydroxyzine pamoate 50 mg Capsule 50 mg PO TID PRN (Reason: ALLERGIES/ANXIETY) Changed buprenorphine HCl 2 mg tablet, sublingual 4 mg SUBLINGUAL BID 30 Days Qty: 0 0RF Discontinued chlordiazepoxide 25 mg Tablet 25 mg PO TID Discharge Orders: Discharge Order (Routine); Ordered 07/25/22 Ordered By: Edwardo Mathur Discharge Diet: Regular Discharge Activity: Resume usual activity Discharge Attestations NPU Time Spent in Discharge Care*: greater than 30 min Coding Level of Care Code Acute [facility] note Diagnoses Depression with suicidal ideation F32.A; R45.851 Polysubstance abuse F19.10 Generalized anxiety disorder F41.1 ADHD F90.9 Bipolar disorder, unspecified F31.9
[2022-07-25 12:30] VITALS: BP 130/73; PULSE 79; RESP 14; TEMP 36.6; O2SAT 96
[2022-07-25] MEDS: CLONazepam 0.5 mg Tablet PO (12:41)
== END 2022-07-25 13:00 | disposition home or self-care (01) | DRG 885 ==
LOC: ER 17:36 → NP 23:56
PROVIDERS: Registered Nurse; Admitting Provider Psychiatry & Neurology Psychiatry; Emergency Provider Emergency Medicine; Visit Provider Psychiatry & Neurology Psychiatry
DX: F31.9 Bipolar disorder, unspecified (principal); R45.851 Suicidal ideations; F41.1 Generalized anxiety disorder; F90.9 Attention-deficit hyperactivity disorder, unspecified type; F19.10 Other psychoactive substance abuse, uncomplicated
CPT/HCPCS: 80053; 80306; 80307; 81001; 84443; 85025; 97165; 99285; J0573